=== PATIENT | female | born 1985 | race Caucasian/White ===

== ENCOUNTER → 2019-03-02 | Outpatient (CLI) | payer BC ==
--- NOTE | 2019-03-02 13:01 | CT ---
EXAM DESCRIPTION: Head: Computed Tomography. CLINICAL HISTORY: LOSS OF CONSCIOUSNESS. Trauma to the neck and head. COMPARISON: Spiral CT scan cervical spine on the same visit. TECHNIQUE: Non-helical axial scans through the skull and brain, at 5 x 20 mm intervals, non-contrast. Coronal and sagittal 2.0 mm reconstructions. Total Exam DLP: 1189.7 mGy-cm. This exam was performed according to our departmental dose-optimization program which includes automated exposure control, adjustment of the mA and/or kV according to patient size and/or use of iterative reconstruction technique; to reduce radiation dose to as low as reasonably achievable (ALARA). FINDINGS: No hemorrhage, no mass-effect, and no midline shift. Normal whitaker matter white matter distribution. No anterior or posterior Vascular calcifications. No abnormal radiodense material in the brain parenchyma. Physiologic calcifications in the pineal gland and choroid plexus. No effacement or displacement of the ventricles, CSF spaces, or subdural spaces. No extra axial fluid collection or hemorrhage. No gross abnormalities of the bony calvarium. Mastoid air cells are unremarkable. Mucoperiosteal thickening in the ethmoid air cells and in the bilateral antra with no definite air-fluid levels. IMPRESSION: 1. No hemorrhage, no mass effect, no midline shift. Normal CT scan of the head without IV contrast. 2. Chronic paranasal sinusitis without air-fluid levels. Electronically signed by: Marcel Vergara MD 03/02/2019 12:59 PM CDT
--- NOTE | 2019-03-02 13:17 | CT ---
EXAM DESCRIPTION: Cervical Spine: Computed Tomography. CLINICAL HISTORY: 33 years Female LOSS OF CONSCIOUSNESS COMPARISON: CT scan of the head without IV contrast on this visit. TECHNIQUE: Spiral, axial 2.5 x 2.5 scans through the cervical spine without contrast. Coronal and sagittal 2.0 mm Reconstructions. Total Exam DLP: 329.7 mGy-cm. This exam was performed according to our departmental dose-optimization program which includes automated exposure control, adjustment of the mA and/or kV according to patient size and/or use of iterative reconstruction technique; to reduce radiation dose to as low as reasonably achievable (ALARA). FINDINGS: Small marginal spurs on the atlantoaxial joint but no acute bony abnormality. Atlantooccipital joint and bilateral C1-C2 facets are negative. Tiny posterior bulge at C3-C4 in the midline approximately 2 mm. Mild to moderate canal narrowing. Bilateral foramina are patent. Facets are negative. No fractures. Posterior midline tiny bulge C4-C5 with possible calcification. Mild to moderate canal narrowing. Bilateral foramina are patent. Facets are unremarkable. No fractures. Remaining disc spaces are negative. No significant disc bulging. Canal patent. Bilateral neural foramina are patent. Bilateral facet joints at other levels. No compression type vertebral body fractures at any level. No locked or perched facets. No significant spondylolisthesis. Spine was slightly kyphotic during the examination. Normal bone density. Paravertebral soft tissues are unremarkable. Included lung leal are negative.. IMPRESSION: Bulging discs at C3-4 and C4-5 without canal stenosis. Minimal arthrosis atlantoaxial joint. No neural foraminal stenosis. No compression type vertebral body fractures or fractures of the posterior elements at any level. Facets are unremarkable. Electronically signed by: Marcel Vergara MD 03/02/2019 1:15 PM CDT
== END ==
LOC: RAD 12:01
PROVIDERS: ATTEND Nurse Practitioner
DX: R55 Syncope and collapse (principal); J32.9 Chronic sinusitis, unspecified; M50.91 Cervical disc disorder, unspecified, high cervical region; M50.921 Unspecified cervical disc disorder at C4-C5 level

== ENCOUNTER → 2019-07-01 | Outpatient (CLI) | payer BC ==
--- NOTE | 2019-07-04 08:00 | US ---
EXAM DESCRIPTION: Soft Tissue,Head/Neck CLINICAL HISTORY: 34 years Female, LOC SWELLING, MASS AND LUMP, NECK COMPARISON: None. TECHNIQUE: Targeted sonographic images of the left neck at the palpable region of interest utilizing grayscale and color flow Doppler images obtained by the technologist. FINDINGS: Heterogeneous hypoechoic fluid collection with internal echogenicity or debris measuring 9 x 6 x 5 mm and is well-circumscribed. This is located no greater than 1 mm deep to the skin surface. This may represent complex cyst. Sterility of this lesion cannot be ascertained by imaging alone. Electronically signed by: Aristeo Glover MD 07/04/2019 7:58 AM ART MODEL
== END ==
LOC: US 14:08
PROVIDERS: ATTEND Nurse Practitioner Family
DX: R22.1 Localized swelling, mass and lump, neck (principal)

== ENCOUNTER → 2020-04-23 | Outpatient (CLI) | payer BC ==
--- NOTE | 2020-04-24 08:54 | CT ---
EXAM: Abdomen/Pelvis w/Contrast INDICATION: LLQ PAIN . COMPARISON: None available TECHNIQUE: CT of the abdomen and pelvis was performed following the administration of IV contrast. Multiple axial images and multiplanar reconstructions were generated. This exam was performed according to our departmental dose-optimization program, which includes automated exposure control, adjustment of the mA and/or kV according to patient size and/or use of iterative reconstruction technique. FINDINGS: Visualized chest: The visualized lung bases are clear. Heart size is within normal limits. Liver: Unremarkable appearance of the liver. Gallbladder: Unremarkable appearance of the gallbladder. Pancreas: Unremarkable appearance of the pancreas. Spleen: Unremarkable appearance of the spleen. Adrenal glands: Unremarkable appearance of the adrenal glands. Kidneys, ureters, bladder: Probable 3 mm cyst in the mid to lower pole of the right kidney, too small to definitively characterize on this study (axial series 2 image 36). No striated nephrograms or hydronephrosis. No obstructing renal stones. Unremarkable appearance of the visualized portions of the ureters. Unremarkable appearance of the urinary bladder. Stomach and bowel: Unremarkable appearance of the stomach. No dilated loops of small bowel. Unremarkable appearance of the colon. The appendix is not identified although there are no focal inflammatory changes in the right lower quadrant to suggest appendicitis. Uterus and adnexa: The uterus appears to be surgically absent. The left ovary is prominent relative to the contralateral side, probably with either multiple follicles or cysts. Probable right ovarian follicle. Peritoneum: No free fluid. No pneumoperitoneum. Lymph nodes: No lymphadenopathy. Vasculature: Unremarkable appearance of the visualized major vascular structures. Bones: No acute fracture. No destructive osseous lesion. Body wall: Tiny fat-containing umbilical hernia. Otherwise unremarkable appearance of the body wall and remainder of the visualized soft tissues. IMPRESSION: 1. The uterus appears to be surgically absent. The left ovary is prominent in size relative to the contralateral side, probably with either multiple follicles or cysts. Further evaluation with pelvic ultrasound is recommended. 2. Probable tiny right renal cyst. Electronically signed by: Zoë Camargo MD 04/24/2020 8:52 AM CEO AND PRESIDENT
== END ==
LOC: LAB.O 12:59
PROVIDERS: ATTEND Nurse Practitioner Family
DX: R10.32 Left lower quadrant pain (principal); N28.9 Disorder of kidney and ureter, unspecified; N83.8 Other noninflammatory disorders of ovary, fallopian tube and broad ligament; Z90.710 Acquired absence of both cervix and uterus; R53.83 Other fatigue